=== PATIENT | male | born 1980 | race Caucasian/White ===

== ENCOUNTER 2019-02-24 09:00 | Inpatient (IN) | payer OTHER ==
[2019-02-24 09:26] VITALS: BMI 24.9
--- NOTE | 2019-02-24 10:23 | HP ---
COWS - Scale Resting Pulse: 0= [place] 80 or Below Sweatin=Flushed/Facial Moisture Restless Observation: 1= Difficult to Sit Still Pupil Size: 1= Pupils >than Normal Bone or Joint Aches: 1= Mild Discomfort Runny Nose/ Eye Tearin= Runny Nose/Eyes GI Upset > 30mins: 2= Nausea/Diarrhea Tremor Observation: 2= Slight Tremor Visible Yawning Observation: 2= >3x During Session Anxiety or Irritability: 2=Irritable/Anxious Goose Flesh Skin: 3=Piloerection COWS Score: 18 CIWA Score Nausea/Vomitin-Mild Nausea/No Vomiting Muscle Tremors: 4-Moderate,w/Arms Extend Anxiety: 3 Agitation: 4-Moderately Restless Paroxysmal Sweats: 3 Orientation: 0-Oriented Tacttile Disturbances: 0-None Auditory Disturbances: 0-None Visual Disturbances: 0-None Headache: 3-Moderate CIWA-Ar Total Score: 18 - Admission Criteria OASAS Guidelines: Admission for Medically Managed Detox: Requires at least one of the followin. CIWA greater than 12 2. Seizures within the past 24 hours 3. Delirium tremens within the past 24 hours 4. Hallucinations within the past 24 hours 5. Acute intervention needed for co occurring medical disorder 6. Acute intervention needed for co occurring psychiatric disorder 7. Severe withdrawal that cannot be handled at a lower level of care (continued vomiting, continued diarrhea, abnormal vital signs) requiring intravenous medication and/or fluids 8. Admitting History and Physical - Admission Chief Complaint: " I want to stop using drugs. I want to do this." History of Present Illness: 38 year old male with opioid dependence with withdrawals, cocaine use disorder. Patient is using 5-10 bags of heroin daily intranasally, last used 2 days ago. He denies overdoses. He has attempted detox in the past 1 month ago at [facility]; a few others over the course 10 years. He also attended rehabilitation following detoxes. He has attended suboxone maintenance program in [facility] in [facility] 9- 10 months ago. He was abstinent 3-5 months and then relapsed again. He wants to detox and rehabilitation program because he does not wish to remain on an MAT. He has been attempting to detox via suboxone and was using suboxone to self - detox. His goal is to be off of all opioids though he has been advised that upon discharge he should consider a maintenance program if he relapses again. He also admits to buying xanax on the streets, trying to alleviate his withdrawal symptoms. He smokes ciggarettes 1.5 ppd since the age of [age] years old. He uses alcohol 1 pint of vodka almost every day, last drank yesterday. PMH: None Psurg: None Psych: None Patient is domiciled. He does have support systems. 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 - Past Surgical History Past Surgical History: Yes: None - Advance Directives Advance Directives: No: Living Will, Health Care Proxy, DNR - Smoking History Smoking history: Current every day smoker Have you smoked in the past 12 months: Yes Aproximately how many cigarettes per day: 15 - Alcohol/Substance Use Hx Alcohol Use: Yes (almost daily use of 1 pint of vodka daily) History of Substance Use: reports: Cocaine, Heroin - Social History Usual Living Arrangement: Yes: With Parent Do you think of yourself as: Straight/Heterosexual ADL: Independent Occupation: senior information security engineer History of Recent Travel: No Admission [facility] Chief Complaint: " I want to stop using drugs. I want to do this." Allergies/Adverse Reactions: Allergies Allergy/AdvReac Type Severity Reaction Status Date / Time No Known Allergies Allergy Verified 02/24/19 09:19 History of Present Illness: 38 year old male with opioid dependence with withdrawals, cocaine use disorder. Patient is using 5-10 bags of heroin daily intranasally, last used 2 days ago. He denies overdoses. He has attempted detox in the past 1 month ago at [facility]; a few others over the course 10 years. He also attended rehabilitation following detoxes. He has attended suboxone maintenance program in [facility] in [facility] 9- 10 months ago. He was abstinent 3-5 months and then relapsed again. He has been attempting to detox via suboxone and was using suboxone to self - detox. His goal is to be off of all opioids though he has been advised that upon discharge he should consider a maintenance program if he relapses again. He also admits to buying xanax on the streets, trying to alleviate his withdrawal symptoms. He wants to detox and rehabilitation program because he does not wish to remain on an MAT. He smokes ciggarettes 1.5 ppd since the age of [age] years old. He uses alcohol 1 pint of vodka almost every day, last drank yesterday. PMH: None Psurg: None Psych: None Patient is domiciled. He does have support systems. 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 - Ebola screening Have you traveled outside of the country in the last 21 days: No Have you had contact with anyone from an Ebola affected area: No Have you been sick,other than usual withdrawal symptoms: No Do you have a fever: No - Review of Systems Constitutional: Chills, Diaphoresis, Loss of Appetite, Unintentional Wgt. Loss EENT: reports: Blurred Vision Respiratory: reports: Cough Cardiac: reports: No Symptoms Reported GI: reports: Nausea, Abdominal cramping : reports: No Symptoms Reported Musculoskeletal: reports: Back Pain, Joint Pain Integumentary: reports: No Symptoms Reported Neuro: reports: Headache Endocrine: reports: No Symptoms Reported Hematology: reports: No Symptoms Reported Psychiatric: reports: Agitated, Anxious Other Systems: Reviewed and Negative Patient History - Patient Medical History Hx Anemia: No Hx Asthma: No Hx Chronic Obstructive Pulmonary Disease (COPD): No Hx Cancer: No Hx Cardiac Disorders: No Hx Congestive Heart Failure: No Hx Hypertension: No Hx Hypercholesterolemia: No Hx Pacemaker: No HX Cerebrovascular Accident: No Hx Seizures: No Hx Dementia: No Hx Diabetes: No Hx Gastrointestinal Disorders: No Hx Liver Disease: No Hx Genitourinary Disorders: No Hx Sexually Transmitted Disorders: No Hx Renal Disease (ESRD): No Hx Thyroid Disease: No Hx Human Immunodeficiency Virus (HIV): Yes (6 months ago negative) Hx Hepatitis C: No (6 months ago negative) Hx Depression: No Hx Suicide Attempt: No Hx Bipolar Disorder: No Hx Schizophrenia: No - Patient Surgical History Past Surgical History: No - PPD History Previous Implant?: Yes Documented Results: Negative w/o proof Implanted On Prior [facility] Admission?: No Date: 05/29/18 Results: negative PPD to be Administered?: Yes - Smoking Cessation Smoking history: Current every day smoker Have you smoked in the past 12 months: Yes Aproximately how many cigarettes per day: 15 Hx Chewing Tobacco Use: No Initiated information on smoking cessation: Yes 'Breaking Loose' booklet given: 02/24/19 - Substances abused Alcohol Substance route: Oral Frequency: Daily Amount used: 1 pint of vodka Age of first use: 13 Date of last use: 02/23/19 Cocaine Substance route: Inhalation Frequency: Daily Amount used: 1 gram Age of first use: 23 Date of last use: 02/24/19 Heroin Substance route: Inhalation Frequency: 3-6 times per week Amount used: 5-10bags Age of first use: 38 Date of last use: 02/20/19 Other Other (specify): percocet 10mg Substance route: Oral Frequency: No use in 30 days Amount used: 1 tab Age of first use: 23 Admission Physical Exam BHS - Vital Signs Vital Signs: Vital Signs - 24 hr 02/24/19 09:19 Temperature 96.9 F L Pulse Rate 65 Respiratory 20 Rate Blood Pressure 139/93 - Physical General Appearance: Yes: Moderate Distress HEENTM: Yes: EOMI, Hearing grossly Normal, Normal ENT Inspection, Normal Voice, KALE, Pharynx Normal, Tm's normal Respiratory: Yes: Chest Non-Tender, Lungs Clear, Normal Breath Sounds, No Respiratory Distress, No Accessory Muscle Use Neck: Yes: No masses,lesions,Nodules, Supple Breast: Yes: Within Normal Limits Cardiology: Yes: Regular Rhythm, Regular Rate, S1, S2 Abdominal: Yes: Increased Bowel Sounds Genitourinary: Yes: Within Normal Limits Back: Yes: Normal Inspection Musculoskeletal: Yes: full range of Motion, Gait Steady, Pelvis Stable Extremities: Yes: Normal Capillary Refill, Normal Range of Motion, Non-Tender, Coldness 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, Fully Oriented, Alert, Motor Strength 5/5, Normal Mood/Affect, Normal Response Integumentary: Yes: Normal Color, Warm Lymphatic: Yes: Within Normal Limits - Diagnostic (1) Alcohol dependence with withdrawal Current Visit: Yes Status: Acute (2) Opioid dependence with withdrawal Current Visit: Yes Status: Acute (3) Nicotine dependence Current Visit: Yes Status: Acute (4) Cocaine use disorder Current Visit: Yes Status: Acute Screened but not Admitted - Documentation of Visit Screened but not Admitted: No Breathalyzer - Breathalyzer Breathalyzer: 0 Urine Drug Screen - Test Device Lot number: [id number] Expiration date: 10/20/20 - Control Is test valid?: Yes - Results Drug screen NEGATIVE: No Urine drug screen results: JENNIFER-Cocaine, BZO-Benzodiazepines, BUP-Suboxone Inpatient Rehab Admission - Rehab Decision to Admit Inpatient rehab admission?: No
[2019-02-24] MEDS ORDERED: MAGNESIUM CITRATE 300 ML BOTTLE PO PRN (10:31)
[2019-02-24] MEDS ORDERED: MENTHOL/PHENOL 1 EACH UD MM PRN (10:31)
[2019-02-24] MEDS ORDERED: MAG HYDROX/AL HYDROX/SIMETH 30 ML UNIT-DOSE CUP PO PRN (10:31)
[2019-02-24] MEDS ORDERED: BISMUTH SUBSALICYLATE 262 MG/15 ML BTL PO PRN (10:31)
[2019-02-24] MEDS ORDERED: ACETAMINOPHEN 325 MG TABLET (FP) PO PRN ×2 (10:31)
[2019-02-24] MEDS ORDERED: cloNIDine HCL 0.1 MG TABLET PO PRN (10:31)
[2019-02-24] MEDS ORDERED: MAGNESIUM HYDROX 2400MG/30ML ORAL SUSPENSION 30 ML CUP PO PRN (10:31)
[2019-02-24] MEDS ORDERED: METHOCARBAMOL 500 MG TABLET PO PRN (10:31)
[2019-02-24] MEDS ORDERED: hydrOXYzine PAMOATE 25 MG CAPSULE (FP) PO PRN (10:31)
[2019-02-24] MEDS ORDERED: METHADONE HCL 10 MG TABLET (FOR DETOX USE ONLY) PO ONE (11:20)
[2019-02-24] MEDS: chlordiazePOXIDE HCL 25 MG CAPSULE PO SCH ×2 (12:21→22:12)
[2019-02-24 14:18] LABS: HEMATOCRIT 37.6 % (35.4-49); MCH 28.9 pg (25.7-33.7); MCHC 34.5 g/dl (32.0-35.9); MEAN CELL VOLUME 83.7 fl (80-96); MEAN PLT VOLUME 8.5 fl (7.5-11.1); PLATELET COUNT 211 K/MM3 (134-434); RDW 13.6 % (11.9-15.9); WHITE BLOOD COUNT 7.2 K/mm3 (4.0-10.0)
[2019-02-24 14:30] LABS: ALBUMIN 4.1 g/dl (3.4-5.0); BILIRUBIN,TOTAL 0.8 mg/dL (0.2-1); BLOOD UREA NITROGEN 11.3 mg/dL (7-18); CALCIUM 9.2 mg/dL (8.5-10.1); CREATININE 0.8 mg/dL (0.55-1.3); POTASSIUM 4.3 mmol/L (3.5-5.1)
[2019-02-24] MEDS: THIAMINE HCL 100 MG TABLET (FP) PO SCH (22:12)
[2019-02-24] MEDS: MELATONIN 5 MG TABLETS PO PRN (22:12)
[2019-02-25] MEDS: chlordiazePOXIDE HCL 25 MG CAPSULE PO SCH ×3 (05:48→21:48)
[2019-02-25] MEDS ORDERED: METHADONE HCL 5 MG TABLET (FOR DETOX USE ONLY) ONE (09:16)
[2019-02-25] MEDS ORDERED: METHADONE HCL 10 MG TABLET (FOR DETOX USE ONLY) ONE (09:17)
[2019-02-25] MEDS ORDERED: METHADONE (DETOX) 20 MG, METHADONE (DETOX) 5 MG PO ONE (10:00)
[2019-02-25] MEDS: NICOTINE 14 MG/24 HOURS TOPICAL PATCH TD SCH (10:59)
[2019-02-25] MEDS: PRENATAL VITAMINS W/ FOLIC ACID TABLET (FP) PO SCH (10:59)
--- NOTE | 2019-02-25 12:21 | PN ---
S CIWA - CIWA Score Nausea/Vomitin-Mild Nausea/No Vomiting Muscle Tremors: 2 Anxiety: 2 Agitation: 2 Paroxysmal Sweats: No Perspiration Orientation: 0-Oriented Tacttile Disturbances: 1-Very Mild Itch/Numbness Auditory Disturbances: 0-None Visual Disturbances: 0-None Headache: 1-Very Mild CIWA-Ar Total Score: 9 BHS COWS - Scale Resting Pulse: 0= [place] 80 or Below Sweatin= No chills or Flushing Restless Observation: 1= Difficult to Sit Still Pupil Size: 1= Pupils >than Normal Bone or Joint Aches: 1= Mild Discomfort Runny Nose/ Eye Tearin= Nasal Congestion GI Upset > 30mins: 1= Stomach Cramp Tremor Observation of Outstretched Hands: 2= Slight Tremor Visible Yawning Observation: 1= 1-2x During Session Anxiety or Irritability: 2=Irritable/Anxious Goose Flesh Skin: 0=Smooth Skin COWS Score: 10 BHS Progress Note (SOAP) Subjective: alert,irritable,anxious,interrupted sleep,pain in the body Objective: 02/25/19 12:19 Vital Signs Temperature 97.4 F L 02/25/19 09:21 Pulse Rate 72 02/25/19 09:21 Respiratory Rate 18 02/25/19 09:21 Blood Pressure 112/62 02/25/19 09:21 O2 Sat by Pulse Oximetry (%) Laboratory Last Values WBC 7.2 K/mm3 (4.0-10.0) 02/24/19 11:05 RBC 4.50 M/mm3 (4.00-5.60) 02/24/19 11:05 Hgb 13.0 GM/dL (11.7-16.9) 02/24/19 11:05 Hct 37.6 % (35.4-49) 02/24/19 11:05 MCV 83.7 fl (80-96) 02/24/19 11:05 MCH 28.9 pg (25.7-33.7) 02/24/19 11:05 MCHC 34.5 g/dl (32.0-35.9) 02/24/19 11:05 RDW 13.6 % (11.9-15.9) 02/24/19 11:05 Plt Count 211 K/MM3 (134-434) 02/24/19 11:05 MPV 8.5 fl (7.5-11.1) 02/24/19 11:05 Sodium 139 mmol/L (136-145) 02/24/19 11:05 Potassium 4.3 mmol/L (3.5-5.1) 02/24/19 11:05 Chloride 104 mmol/L (98-107) 02/24/19 11:05 Carbon Dioxide 30 mmol/L (21-32) 02/24/19 11:05 Anion Gap 4 MMOL/L (8-16) L 02/24/19 11:05 BUN 11.3 mg/dL (7-18) 02/24/19 11:05 Creatinine 0.8 mg/dL (0.55-1.3) 02/24/19 11:05 Est GFR (CKD-EPI)AfAm 133.20 02/24/19 11:05 Est GFR (CKD-EPI)NonAf 114.93 02/24/19 11:05 Random Glucose 90 mg/dL (74-106) 02/24/19 11:05 Calcium 9.2 mg/dL (8.5-10.1) 02/24/19 11:05 Total Bilirubin 0.8 mg/dL (0.2-1) 02/24/19 11:05 AST 34 U/L (15-37) 02/24/19 11:05 ALT 41 U/L (13-61) 02/24/19 11:05 Alkaline Phosphatase 63 U/L (45-117) 02/24/19 11:05 Total Protein 7.0 g/dl (6.4-8.2) 02/24/19 11:05 Albumin 4.1 g/dl (3.4-5.0) 02/24/19 11:05 02/25/19 12:20 rpr pending Assessment: 02/25/19 12:20 withdrawal symptom Plan: continue detox methadone and librium regimen
[2019-02-25] MEDS: chlordiazePOXIDE HCL 10 MG CAPSULE PO PRN (18:35)
[2019-02-25] MEDS: THIAMINE HCL 100 MG TABLET (FP) PO SCH (21:50)
[2019-02-25] MEDS: MELATONIN 5 MG TABLETS PO PRN (21:51)
[2019-02-26] MEDS: chlordiazePOXIDE 5 MG CAPSULE PO SCH ×3 (04:06→21:12)
[2019-02-26] MEDS: IBUPROFEN 400 MG TABLET (FP) PO PRN ×2 (09:37→20:05)
[2019-02-26] MEDS ORDERED: METHADONE HCL 10 MG TABLET (FOR DETOX USE ONLY) PO ONE (10:00)
[2019-02-26] MEDS: NICOTINE 14 MG/24 HOURS TOPICAL PATCH TD SCH (10:22)
[2019-02-26] MEDS: PRENATAL VITAMINS W/ FOLIC ACID TABLET (FP) PO SCH (10:22)
--- NOTE | 2019-02-26 11:54 | PN ---
[facility] CIWA - CIWA Score Nausea/Vomitin-Mild Nausea/No Vomiting Muscle Tremors: 2 Anxiety: 2 Agitation: 2 Paroxysmal Sweats: No Perspiration Orientation: 0-Oriented Tacttile Disturbances: 1-Very Mild Itch/Numbness Auditory Disturbances: 0-None Visual Disturbances: 0-None Headache: 2-Mild CIWA-Ar Total Score: 10 BHS COWS - Scale Resting Pulse: 0= [place] 80 or Below Sweatin= No chills or Flushing Restless Observation: 1= Difficult to Sit Still Pupil Size: 1= Pupils >than Normal Bone or Joint Aches: 1= Mild Discomfort Runny Nose/ Eye Tearin= Nasal Congestion GI Upset > 30mins: 1= Stomach Cramp Tremor Observation of Outstretched Hands: 1= Tremor [place], Not Seen Yawning Observation: 1= 1-2x During Session Anxiety or Irritability: 2=Irritable/Anxious Goose Flesh Skin: 0=Smooth Skin COWS Score: 9 S Progress Note (SOAP) Subjective: alert,irritable,anxious,interrupted sleep,tremor,pain in the body and back Objective: 02/26/19 11:53 Vital Signs Temperature 97.6 F 02/26/19 09:21 Pulse Rate 60 02/26/19 09:21 Respiratory Rate 18 02/26/19 09:21 Blood Pressure 138/65 02/26/19 09:21 O2 Sat by Pulse Oximetry (%) 02/26/19 11:53 Laboratory Last Values WBC 7.2 K/mm3 (4.0-10.0) 02/24/19 11:05 RBC 4.50 M/mm3 (4.00-5.60) 02/24/19 11:05 Hgb 13.0 GM/dL (11.7-16.9) 02/24/19 11:05 Hct 37.6 % (35.4-49) 02/24/19 11:05 MCV 83.7 fl (80-96) 02/24/19 11:05 MCH 28.9 pg (25.7-33.7) 02/24/19 11:05 MCHC 34.5 g/dl (32.0-35.9) 02/24/19 11:05 RDW 13.6 % (11.9-15.9) 02/24/19 11:05 Plt Count 211 K/MM3 (134-434) 02/24/19 11:05 MPV 8.5 fl (7.5-11.1) 02/24/19 11:05 Sodium 139 mmol/L (136-145) 02/24/19 11:05 Potassium 4.3 mmol/L (3.5-5.1) 02/24/19 11:05 Chloride 104 mmol/L (98-107) 02/24/19 11:05 Carbon Dioxide 30 mmol/L (21-32) 02/24/19 11:05 Anion Gap 4 MMOL/L (8-16) L 02/24/19 11:05 BUN 11.3 mg/dL (7-18) 02/24/19 11:05 Creatinine 0.8 mg/dL (0.55-1.3) 02/24/19 11:05 Est GFR (CKD-EPI)AfAm 133.20 02/24/19 11:05 Est GFR (CKD-EPI)NonAf 114.93 02/24/19 11:05 Random Glucose 90 mg/dL (74-106) 02/24/19 11:05 Calcium 9.2 mg/dL (8.5-10.1) 02/24/19 11:05 Total Bilirubin 0.8 mg/dL (0.2-1) 02/24/19 11:05 AST 34 U/L (15-37) 02/24/19 11:05 ALT 41 U/L (13-61) 02/24/19 11:05 Alkaline Phosphatase 63 U/L (45-117) 02/24/19 11:05 Total Protein 7.0 g/dl (6.4-8.2) 02/24/19 11:05 Albumin 4.1 g/dl (3.4-5.0) 02/24/19 11:05 RPR Titer Nonreactive (NONREACTIVE) 02/24/19 11:05 Assessment: 02/26/19 11:53 withdrawal symptom Plan: continue detox,methadone and librium regimen
[2019-02-26] MEDS: chlordiazePOXIDE HCL 10 MG CAPSULE PO PRN (16:46)
[2019-02-26] MEDS: THIAMINE HCL 100 MG TABLET (FP) PO SCH (22:14)
[2019-02-26] MEDS: MELATONIN 5 MG TABLETS PO PRN (22:14)
[2019-02-27] MEDS ORDERED: chlordiazePOXIDE HCL 10 MG CAPSULE PO PRN
[2019-02-27] MEDS ORDERED: chlordiazePOXIDE HCL 10 MG CAPSULE PO SCH (05:00)
[2019-02-27] MEDS ORDERED: METHADONE HCL 5 MG TABLET (FOR DETOX USE ONLY) ONE (09:37)
[2019-02-27] MEDS ORDERED: METHADONE HCL 10 MG TABLET (FOR DETOX USE ONLY) ONE (09:38)
[2019-02-27] MEDS ORDERED: METHADONE (DETOX) 10 MG, METHADONE (DETOX) 5 MG PO ONE (10:00)
[2019-02-27 10:22] VITALS: BP 124/60; PULSE 63; TEMP 97.9
--- NOTE | 2019-02-27 10:23 | PN ---
[facility] CIWA - CIWA Score Nausea/Vomitin-No Nausea/No Vomiting Muscle Tremors: 1-None Visible, but [place] Anxiety: 1-Mildly Anxious Agitation: 1-Slight > Activity Paroxysmal Sweats: No Perspiration Orientation: 0-Oriented Tacttile Disturbances: 0-None Auditory Disturbances: 0-None Visual Disturbances: 0-None Headache: 0-None Present CIWA-Ar Total Score: 3 S COWS - Scale Resting Pulse: 0= [place] 80 or Below Sweatin= No chills or Flushing Restless Observation: 0= Sits Still Pupil Size: 0= Normal to Room Light Bone or Joint Aches: 1= Mild Discomfort Runny Nose/ Eye Tearin= None GI Upset > 30mins: 0= None Tremor Observation of Outstretched Hands: 0= None Yawning Observation: 0= None Anxiety or Irritability: 1=Feels Anxious/Irritable Goose Flesh Skin: 0=Smooth Skin COWS Score: 2 S Progress Note (SOAP) Subjective: alert,no complaint Objective: 02/27/19 10:21 Vital Signs Temperature 97.5 F L 02/26/19 22:00 Pulse Rate 54 L 02/26/19 22:00 Respiratory Rate 18 02/27/19 03:30 Blood Pressure 109/54 L 02/26/19 22:00 O2 Sat by Pulse Oximetry (%) Assessment: 02/27/19 10:21 no withdrawal symptom Plan: stable for discharge,follow up with [facility]
--- NOTE | 2019-02-27 10:27 | DS ---
[facility] Detox Discharge Summary Admission Date: 02/24/19 Discharge Date: 02/27/19 - History Present History: Alcohol Dependence, Cocaine Dependence, Opioid Dependence Additional Comments: patient is stable for discharge to day to go to rehab [facility] - Physical Exam Results Vital Signs: Vital Signs Temperature 97.9 F 02/27/19 10:21 Pulse Rate 63 02/27/19 10:21 Respiratory Rate 18 02/27/19 10:21 Blood Pressure 124/60 02/27/19 10:21 O2 Sat by Pulse Oximetry (%) Pertinent Admission Physical Exam Findings: withdrawal signs and symptom Laboratory Last Values WBC 7.2 K/mm3 (4.0-10.0) 02/24/19 11:05 RBC 4.50 M/mm3 (4.00-5.60) 02/24/19 11:05 Hgb 13.0 GM/dL (11.7-16.9) 02/24/19 11:05 Hct 37.6 % (35.4-49) 02/24/19 11:05 MCV 83.7 fl (80-96) 02/24/19 11:05 MCH 28.9 pg (25.7-33.7) 02/24/19 11:05 MCHC 34.5 g/dl (32.0-35.9) 02/24/19 11:05 RDW 13.6 % (11.9-15.9) 02/24/19 11:05 Plt Count 211 K/MM3 (134-434) 02/24/19 11:05 MPV 8.5 fl (7.5-11.1) 02/24/19 11:05 Sodium 139 mmol/L (136-145) 02/24/19 11:05 Potassium 4.3 mmol/L (3.5-5.1) 02/24/19 11:05 Chloride 104 mmol/L (98-107) 02/24/19 11:05 Carbon Dioxide 30 mmol/L (21-32) 02/24/19 11:05 Anion Gap 4 MMOL/L (8-16) L 02/24/19 11:05 BUN 11.3 mg/dL (7-18) 02/24/19 11:05 Creatinine 0.8 mg/dL (0.55-1.3) 02/24/19 11:05 Est GFR (CKD-EPI)AfAm 133.20 02/24/19 11:05 Est GFR (CKD-EPI)NonAf 114.93 02/24/19 11:05 Random Glucose 90 mg/dL (74-106) 02/24/19 11:05 Calcium 9.2 mg/dL (8.5-10.1) 02/24/19 11:05 Total Bilirubin 0.8 mg/dL (0.2-1) 02/24/19 11:05 AST 34 U/L (15-37) 02/24/19 11:05 ALT 41 U/L (13-61) 02/24/19 11:05 Alkaline Phosphatase 63 U/L (45-117) 02/24/19 11:05 Total Protein 7.0 g/dl (6.4-8.2) 02/24/19 11:05 Albumin 4.1 g/dl (3.4-5.0) 02/24/19 11:05 RPR Titer Nonreactive (NONREACTIVE) 02/24/19 11:05 Vital Signs Temperature 97.9 F 02/27/19 10:21 Pulse Rate 63 02/27/19 10:21 Respiratory Rate 18 02/27/19 10:21 Blood Pressure 124/60 02/27/19 10:21 O2 Sat by Pulse Oximetry (%) - Treatment Hospital Course: Detox Protocol Followed, Detoxed Safely, Responded well, Discharged Condition Good, Rehab Referral Accepted Patient has Accepted a Rehab Referral to: [facility] - Medication Discharge Medications: Ambulatory Orders Buprenorphine/Naloxone [Suboxone 8Mg/2Mg Sl Film -] 1 each SL BID 02/24/19 - Diagnosis (1) Alcohol dependence with withdrawal Current Visit: Yes Status: Acute (2) Cocaine use disorder Current Visit: Yes Status: Acute (3) Nicotine dependence Current Visit: Yes Status: Acute (4) Opioid dependence with withdrawal Current Visit: Yes Status: Acute - AMA Did Patient Leave Against Medical Advice: No
[2019-02-27] MEDS: PRENATAL VITAMINS W/ FOLIC ACID TABLET (FP) PO SCH (10:53)
[2019-02-27] MEDS: NICOTINE 14 MG/24 HOURS TOPICAL PATCH TD SCH (10:55)
[2019-02-28] MEDS ORDERED: chlordiazePOXIDE HCL 10 MG CAPSULE PO ONE (05:00)
[2019-02-28] MEDS ORDERED: METHADONE HCL 10 MG TABLET (FOR DETOX USE ONLY) PO ONE (10:00)
[2019-03-01] MEDS ORDERED: METHADONE HCL 5 MG TABLET (FOR DETOX USE ONLY) PO ONE (06:00)
== END 2019-02-27 11:18 | disposition other institution (70) | DRG 773 ==
LOC: YASAS 09:00 → Y6N 11:12
PROVIDERS: ADMIT Allergy & Immunology; ATTEND Allergy & Immunology
PROC: HZ2ZZZZ Detoxification Services for Substance Abuse Treatment (ICD-10-PCS; principal; 2019-02-24)
DX: F11.23 Opioid dependence with withdrawal (principal); F10.230 Alcohol dependence with withdrawal, uncomplicated; F14.20 Cocaine dependence, uncomplicated; F17.210 Nicotine dependence, cigarettes, uncomplicated
CPT/HCPCS: 36415; 80053; 85027; 86593; J0735

== ENCOUNTER 2020-08-28 18:11 | Inpatient (IN) | payer OTHER ==
[2020-08-28 19:29] VITALS: BMI 25.5
[2020-08-28] MEDS ORDERED: MAGNESIUM HYDROX 2400MG/30ML ORAL SUSPENSION 30 ML CUP PO PRN (19:43)
[2020-08-28] MEDS ORDERED: IBUPROFEN 400 MG TABLET (FP) PO PRN (19:43)
[2020-08-28] MEDS ORDERED: ONDANSETRON *ODT* 4 MG TABLET SL PRN (19:43)
[2020-08-28] MEDS ORDERED: METHOCARBAMOL 500 MG TABLET PO PRN (19:43)
[2020-08-28] MEDS ORDERED: MENTHOL/PHENOL 1 EACH UD MM PRN (19:43)
[2020-08-28] MEDS ORDERED: NICOTINE POLACRILEX 2 MG GUM BUC PRN (19:43)
[2020-08-28] MEDS ORDERED: cloNIDine HCL 0.1 MG TABLET PO PRN (19:43)
[2020-08-28] MEDS ORDERED: ACETAMINOPHEN 325 MG TABLET (FP) PO PRN ×2 (19:43)
[2020-08-28] MEDS ORDERED: BISMUTH SUBSALICYLATE 524 MG/30 ML UD PO PRN (19:43)
[2020-08-28] MEDS ORDERED: MAG HYDROX/AL HYDROX/SIMETH 30 ML UNIT-DOSE CUP PO PRN (19:43)
[2020-08-28] MEDS ORDERED: MAGNESIUM CITRATE 300 ML BOTTLE PO PRN (19:43)
[2020-08-28] MEDS: chlordiazePOXIDE HCL 25 MG CAPSULE PO PRN (20:28)
[2020-08-28] MEDS ORDERED: METHADONE HCL 10 MG TABLET (FOR DETOX USE ONLY) PO ONE (20:30)
[2020-08-28] MEDS: chlordiazePOXIDE HCL 25 MG CAPSULE PO SCH (23:03)
[2020-08-28] MEDS: THIAMINE HCL 100 MG TABLET (FP) PO SCH (23:06)
[2020-08-28] MEDS: MELATONIN 5 MG TABLETS PO SCH (23:06)
[2020-08-29] MEDS: chlordiazePOXIDE HCL 25 MG CAPSULE PO SCH ×4 (06:26→22:40)
[2020-08-29] MEDS ORDERED: METHADONE HCL 5 MG TABLET (FOR DETOX USE ONLY) ONE (08:43)
[2020-08-29] MEDS ORDERED: METHADONE HCL 10 MG TABLET (FOR DETOX USE ONLY) ONE (08:44)
[2020-08-29] MEDS ORDERED: METHADONE (DETOX) 20 MG, METHADONE (DETOX) 5 MG PO ONE (10:00)
[2020-08-29] MEDS: NICOTINE 21 MG/24 HOURS TOPICAL PATCH TD SCH (10:40)
[2020-08-29] MEDS: PRENATAL VITAMINS W/ FOLIC ACID TABLET (FP) PO SCH (10:41)
[2020-08-29 12:20] LABS: CALCIUM 8.6 mg/dL (8.5-10.1); HEMATOCRIT 43.8 % (35.4-49); HEMOGLOBIN 14.9 GM/dL (11.7-16.9); MCH 28.5 pg (25.7-33.7); MCHC 34.1 g/dl (32.0-35.9); MEAN CELL VOLUME 83.4 fl (80-96); MEAN PLT VOLUME 8.8 fl (7.5-11.1); PLATELET COUNT 262 K/MM3 (134-434); RBC 5.25 M/mm3 (4.00-5.60); RDW 13.2 % (11.9-15.9); WHITE BLOOD COUNT 7.8 K/mm3 (4.0-10.0)
[2020-08-29 12:21] LABS: ALBUMIN 3.8 g/dl (3.4-5.0); BLOOD UREA NITROGEN 16.1 mg/dL (7-18)
[2020-08-29 12:25] LABS: BILIRUBIN,TOTAL 0.4 mg/dL (0.2-1); TOT PROT 6.8 g/dl (6.4-8.2)
[2020-08-29] MEDS: chlordiazePOXIDE HCL 25 MG CAPSULE PO PRN (14:35)
[2020-08-29] MEDS: THIAMINE HCL 100 MG TABLET (FP) PO SCH (22:40)
[2020-08-29] MEDS: MELATONIN 5 MG TABLETS PO SCH (22:41)
[2020-08-30] MEDS: chlordiazePOXIDE HCL 25 MG CAPSULE PO SCH ×2 (06:39→10:04)
[2020-08-30] MEDS ORDERED: METHADONE HCL 10 MG TABLET (FOR DETOX USE ONLY) PO ONE (10:00)
[2020-08-30] MEDS: PRENATAL VITAMINS W/ FOLIC ACID TABLET (FP) PO SCH (10:08)
[2020-08-30] MEDS: NICOTINE 21 MG/24 HOURS TOPICAL PATCH TD SCH (10:08)
[2020-08-30] MEDS: chlordiazePOXIDE HCL 25 MG CAPSULE PO PRN (13:07)
[2020-08-30 13:28] VITALS: BP 139/72; PULSE 69; TEMP 98.1
[2020-08-31] MEDS ORDERED: chlordiazePOXIDE HCL 10 MG CAPSULE PO PRN
[2020-08-31] MEDS ORDERED: chlordiazePOXIDE HCL 10 MG CAPSULE PO SCH (05:00)
[2020-08-31] MEDS ORDERED: METHADONE (DETOX) 10 MG, METHADONE (DETOX) 5 MG PO ONE (10:00)
[2020-09-01] MEDS ORDERED: chlordiazePOXIDE HCL 10 MG CAPSULE PO SCH (05:00)
[2020-09-01] MEDS ORDERED: METHADONE HCL 10 MG TABLET (FOR DETOX USE ONLY) PO ONE (10:00)
[2020-09-02] MEDS ORDERED: chlordiazePOXIDE HCL 10 MG CAPSULE PO ONE (05:00)
[2020-09-02] MEDS ORDERED: METHADONE HCL 5 MG TABLET (FOR DETOX USE ONLY) PO ONE (06:00)
== END 2020-08-30 14:23 | disposition left against medical advice (07) | DRG 770 ==
LOC: YASAS 18:11 → Y6N 19:52
PROVIDERS: ADMIT Allergy & Immunology; ATTEND Allergy & Immunology
PROC: HZ2ZZZZ Detoxification Services for Substance Abuse Treatment (ICD-10-PCS; principal; 2020-08-28)
DX: F11.23 Opioid dependence with withdrawal (principal); F10.230 Alcohol dependence with withdrawal, uncomplicated; F14.20 Cocaine dependence, uncomplicated; F17.210 Nicotine dependence, cigarettes, uncomplicated
CPT/HCPCS: 36415; 80053; 85027; 86780; 93005; 93010; C9803; J0735; U0003; U0005

== ENCOUNTER 2021-06-27 14:17 | Inpatient (IN) | payer OTHER ==
[2021-06-27] MEDS ORDERED: MAGNESIUM HYDROX 2400MG/30ML ORAL SUSPENSION 30 ML CUP PO PRN (15:30)
[2021-06-27] MEDS ORDERED: ACETAMINOPHEN 325 MG TABLET (FP) PO PRN ×2 (15:30)
[2021-06-27] MEDS ORDERED: METHOCARBAMOL 500 MG TABLET PO PRN (15:30)
[2021-06-27] MEDS ORDERED: MAG HYDROX/AL HYDROX/SIMETH 30 ML UNIT-DOSE CUP PO PRN (15:30)
[2021-06-27] MEDS ORDERED: MENTHOL/PHENOL 1 EACH UD MM PRN (15:30)
[2021-06-27] MEDS ORDERED: ONDANSETRON *ODT* 4 MG TABLET SL PRN (15:30)
[2021-06-27] MEDS ORDERED: MAGNESIUM CITRATE 300 ML BOTTLE PO PRN (15:30)
[2021-06-27] MEDS ORDERED: IBUPROFEN 400 MG TABLET (FP) PO PRN (15:30)
[2021-06-27] MEDS ORDERED: BISMUTH SUBSALICYLATE 262 MG/15 ML BTL PO PRN (15:30)
[2021-06-27] MEDS ORDERED: LOPERAMIDE HCL 2 MG CAPSULE PO PRN (15:30)
[2021-06-27] MEDS ORDERED: chlordiazePOXIDE HCL 25 MG CAPSULE PO ONE (15:32)
[2021-06-27] MEDS ORDERED: chlordiazePOXIDE HCL 25 MG CAPSULE PO PRN (15:32)
[2021-06-27] MEDS ORDERED: cloNIDine HCL 0.1 MG TABLET PO PRN (15:33)
[2021-06-27 21:08] VITALS: BMI 27.6
[2021-06-27] MEDS: hydrOXYzine PAMOATE 25 MG CAPSULE (FP) PO SCH ×2 (22:30→23:23)
[2021-06-27] MEDS: chlordiazePOXIDE HCL 25 MG CAPSULE PO SCH ×3 (22:30→23:22)
[2021-06-27] MEDS: THIAMINE HCL 100 MG TABLET (FP) PO SCH (22:32)
[2021-06-27] MEDS: NICOTINE POLACRILEX 2 MG GUM BUC PRN (22:35)
[2021-06-27] MEDS: MELATONIN 5 MG TABLETS PO SCH (23:24)
[2021-06-28] MEDS: hydrOXYzine PAMOATE 25 MG CAPSULE (FP) PO SCH ×5 (06:09→22:32)
[2021-06-28] MEDS: chlordiazePOXIDE HCL 25 MG CAPSULE PO SCH ×4 (06:10→22:32)
[2021-06-28] MEDS: NICOTINE 10 MG CARTRIDGE (INHALER) IH PRN ×2 (06:12→10:28)
[2021-06-28 10:00] LABS: HEMATOCRIT 36.9 % (35.4-49); HEMOGLOBIN 12.5 GM/dL (11.7-16.9); MCH 28.5 pg (25.7-33.7); MCHC 33.7 g/dl (32.0-35.9); MEAN CELL VOLUME 84.4 fl (80-96); MEAN PLT VOLUME 8.8 fl (7.5-11.1); PLATELET COUNT 214 10^3/uL (134-434); RBC 4.38 M/mm3 (4.00-5.60); WHITE BLOOD COUNT 4.9 K/mm3 (4.0-10.0)
[2021-06-28 10:06] LABS: ALBUMIN 3.3 g/dl (3.4-5.0); BLOOD UREA NITROGEN 20.3 mg/dL (7-18)
[2021-06-28 10:09] LABS: CREATININE 1.2 mg/dL (0.55-1.3)
[2021-06-28 10:11] LABS: BILIRUBIN,TOTAL 0.7 mg/dL (0.2-1)
[2021-06-28] MEDS: PRENATAL VITAMINS W/ FOLIC ACID TABLET (FP) PO SCH (10:24)
[2021-06-28] MEDS: BUPRENORPHINE/NALOXONE 2 MG/0.5 MG FILM PACKET SL SCH (10:25)
[2021-06-28] MEDS: THIAMINE HCL 100 MG TABLET (FP) PO SCH (22:32)
[2021-06-28] MEDS: MELATONIN 5 MG TABLETS PO SCH (22:32)
[2021-06-29] MEDS: chlordiazePOXIDE HCL 25 MG CAPSULE PO SCH ×4 (04:42→22:14)
[2021-06-29] MEDS: NICOTINE POLACRILEX 2 MG GUM BUC PRN (04:46)
[2021-06-29] MEDS: hydrOXYzine PAMOATE 25 MG CAPSULE (FP) PO SCH ×5 (05:02→21:55)
[2021-06-29] MEDS: PRENATAL VITAMINS W/ FOLIC ACID TABLET (FP) PO SCH (10:31)
[2021-06-29] MEDS: BUPRENORPHINE/NALOXONE 2 MG/0.5 MG FILM PACKET SL SCH (10:32)
[2021-06-29] MEDS: MELATONIN 5 MG TABLETS PO SCH (21:54)
[2021-06-29] MEDS: THIAMINE HCL 100 MG TABLET (FP) PO SCH (21:55)
[2021-06-30] MEDS ORDERED: chlordiazePOXIDE HCL 10 MG CAPSULE PO PRN
[2021-06-30] MEDS: hydrOXYzine PAMOATE 25 MG CAPSULE (FP) PO SCH ×2 (06:30→10:46)
[2021-06-30] MEDS: chlordiazePOXIDE HCL 10 MG CAPSULE PO SCH ×2 (06:30→10:46)
[2021-06-30 09:36] VITALS: BP 119/61; PULSE 61; TEMP 97.3
[2021-06-30] MEDS: BUPRENORPHINE/NALOXONE 2 MG/0.5 MG FILM PACKET SL SCH (10:45)
[2021-06-30] MEDS: PRENATAL VITAMINS W/ FOLIC ACID TABLET (FP) PO SCH (10:46)
[2021-07-01] MEDS ORDERED: chlordiazePOXIDE HCL 10 MG CAPSULE PO SCH (05:00)
[2021-07-02] MEDS ORDERED: chlordiazePOXIDE HCL 10 MG CAPSULE PO ONE (05:00)
== END 2021-06-30 13:43 | disposition left against medical advice (07) | DRG 770 ==
LOC: YASAS 14:17 → Y6N 21:15
PROVIDERS: ADMIT Allergy & Immunology; ATTEND Allergy & Immunology
PROC: HZ2ZZZZ Detoxification Services for Substance Abuse Treatment (ICD-10-PCS; principal; 2021-06-27)
DX: F10.230 Alcohol dependence with withdrawal, uncomplicated (principal); F11.20 Opioid dependence, uncomplicated; F17.210 Nicotine dependence, cigarettes, uncomplicated; R74.01 Elevation of levels of liver transaminase levels; R79.89 Other specified abnormal findings of blood chemistry; Z51.81 Encounter for therapeutic drug level monitoring; Z79.899 Other long term (current) drug therapy
CPT/HCPCS: 36415; 80053; 82962; 84450; 85027; 86780; 87811; J0735